=== PATIENT | female | born 1965 | race Caucasian/White ===

== ENCOUNTER 2017-02-06 20:26 | Emergency (ER) | payer BC, OTHER ==
[~2017-02-06] VITALS: Ht 170.2 cm; Wt 92.2 kg
[2017-02-06 20:31] VITALS: TEMP 36.6; Ht 170.2 cm; Wt 92.2 kg
[2017-02-06] MEDS ORDERED: OXYCODONE/ACETAMINOPHEN 5-325 TAB PO STA ×2 (20:59→22:40)
[2017-02-06] MEDS ORDERED: METOPROLOL SUCC 50MG EXT REL TAB PO STA (21:03)
[2017-02-06] MEDS ORDERED: MULT-240 PO (21:17)
[2017-02-06] MEDS ORDERED: METO25TA3 PO (21:17)
[2017-02-06] MEDS ORDERED: METOPROLOL SUCC 25MG EXT REL TAB PO ONE (21:22)
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
[2017-02-06] MEDS ORDERED: IBUPROFEN 600 MG TAB PO STA (21:28)
--- NOTE | 2017-02-06 21:54 | DIAGNOSTIC IMAGING REPORT ---
R ANKLE MIN 3 VIEWS ROUTINE, R FOOT MIN 3 VIEWS ROUTINE CLINICAL HISTORY: Right ankle and foot pain. COMPARISON STUDY: None. FINDINGS: There is a fracture through the pelvis which demonstrates up to 6 mm of medial displacement. Diffuse soft tissue swelling within the ankle. The distal fibula appears intact. No dislocation. No fracture or dislocation within the right foot. The Lisfranc joint is well aligned. IMPRESSION: 1. Mildly displaced medial malleolus fracture. 2. No fracture or dislocation within the right foot. Electronically signed by: Ruslan Mack M.D. 02/06/2017 9:53 PM Dictated Date/Time: 02/06/2017 9:51 PM
[2017-02-06] MEDS ORDERED: OXYC-57 PO (22:13)
[2017-02-06] MEDS ORDERED: PERCOCET HOME PACK PO ONE (22:30)
[2017-02-06 23:15] VITALS: BP 168/72; PULSE 89; O2SAT 94
[2017-02-11] MEDS ORDERED: ASPI81TA28 PO (14:01)
[2017-02-11] MEDS ORDERED: DOCU-94 PO (14:01)
== END 2017-02-06 23:10 | disposition home or self-care (01) ==
LOC: EDBD 20:26 → C.EDB 20:27
DX: S82.51XA Displaced fracture of medial malleolus of right tibia, initial encounter for closed fracture (principal); S80.212A Abrasion, left knee, initial encounter; V43.62XA Car passenger injured in collision with other type car in traffic accident, initial encounter; I10 Essential (primary) hypertension; F17.200 Nicotine dependence, unspecified, uncomplicated; Z82.49 Family history of ischemic heart disease and other diseases of the circulatory system

== ENCOUNTER → 2017-02-07 | Outpatient (CLI) | payer OTHER, BC ==
[~2017-02-07] MED LIST: ASPI325T45 PO; ASPI81TA28 PO; DOCU-94 PO; METO25TA3 PO; MULT-240 PO; OXYC-57 PO
== END | disposition home or self-care (01) ==
LOC: C.CPL 13:51
PROVIDERS: ATTEND Physician Assistant
DX: S82.51XA Displaced fracture of medial malleolus of right tibia, initial encounter for closed fracture (principal); X58.XXXA Exposure to other specified factors, initial encounter

== ENCOUNTER → 2017-02-13 | Day surgery (SDC) | payer OTHER, BC ==
[2017-02-11 14:02] VITALS: Ht 170.2 cm; Wt 81.8 kg
[~2017-02-13] VITALS: Ht 170.2 cm; Wt 81.8 kg
[~2017-02-13] MED LIST changes: +ASPECOTC PO; -ASPI325T45 PO; +ATROPINE SULFATE 0.1 MG/ML 5ML SYR IV PRN; +BUPIVACAINE 0.5 % 5 MG/1 ML MPF 30ML VIAL ONE; +CEFAZOLIN 2000MG IV PUSH 10 ML IV SCH; +EpHEDrine SULFATE INJ 50 MG/ML AMP IV PRN; +FENTANYL CITRATE INJ 50 MCG/1 ML 2 ML VIAL ONE; +HYDROmorphone INJ 0.5 MG/0.5 ML SYR IM PRN; +LACTATED RINGER'S 1000ML 1,000 ML IV SCH; +LIDOCAINE HCL 2% 2 ML VIAL (20MG/ML) ONE; +MIDAZOLAM HCL 1 MG/ML 2ML VIAL ONE; +ONDANSETRON INJ 2 MG/ML 2 ML VIAL IV PRN; +ONDANSETRON INJ 2 MG/ML 2 ML VIAL ONE; +OXYCODONE/ACETAMINOPHEN 5-325 TAB PO PRN; +PROPOFOL IV EMULSION 10 MG/ML 20 ML VIAL IV ONE; +ROPIVACAINE 0.5% 5 MG/ML 30 ML VIAL ONE; +SODIUM CHLORIDE 0.9% 1000ML 1,000 ML IV SCH
--- NOTE | 2017-02-13 12:12 | History & Physical Bridge Note ---
H&P Re-Evaluation Bridge Note: I have examined the patient, reviewed the History & Physical and in the interval since the performance of the History & Physical I have noted the following changes of clinical significance: No changes noted
--- NOTE | 2017-02-13 13:19 | [facility] Post Operative Brief Note ---
Immediate Operative Summary Operative Date Feb 13, 2017. Pre-Operative Diagnosis Right Ankle medial malleolus Fracture Post-Operative Diagnosis Same Procedure(s) Performed Right Medial Malleolus Open Reduction Internal Fixation Surgeon Dr. Monroy Concierge Receptionist Surgeon(s) Dana Bustos PA-C Estimated Blood Loss 5ml Findings medial malleolus fracture Specimens None Anesthesia LMA, block Complication(s) None Disposition Recovery Room / PACU
--- NOTE | 2017-02-13 13:40 | Discharge Instructions-SurgCtr ---
Discharge Instructions Date of Service Feb 13, 2017. Visit Reason for Visit: Right Medial Mallolus Fracture Discharge Discharge Diagnosis / Problem: right medial malleolus fracture Discharge Goals Goal(s): Decrease discomfort, Improve function, Increase independence Activity Recommendations Activity Limitations: per Instructions/Follow-up section Weightbearing Status: Right non-weightbearing Anesthesia . Post Anesthesia Instructions: If you have had General Anesthesia or IV Sedation: * Do not drive today. * Resume driving when surgeon permits. * Do not make important decisions or sign legal documents today. * Call surgeon for: 1. Temperature elevations greater than 101 degrees F. 2. Uncontrollable pain. 3. Excessive bleeding. 4. Persistent nausea and vomiting. 5. Medication intolerance (nausea, vomiting or rash). * For nausea and vomiting use only clear liquids such as: tea, soda, bouillon until nausea subsides, then gradually increase diet as tolerated. * If you have any concerns or questions, call your surgeon's office. If physician is unavailable and it is an emergency, call 911 or go to the nearest emergency room. . Instructions / Follow-Up Instructions / Follow-Up DIET: * Resume previous diet. MEDICATIONS: * Please take your prescriptions as instructed at your pre-op appointment and/ or see medication discharge instructions listed above. * A prescription for Percocet 5/325 mg was provided for review today. Please take 1-2 tablets every 4-6 hours as needed for pain. Please call our office if you need a refill. * *Your aspirin 325 mg tomorrow morning with breakfast. Please take 1 tablet twice a day for 3 weeks or as instructed by your physician. * If concerns develop, call your physician's office at . SPECIAL CARE INSTRUCTIONS: * Ice to right ankle as needed for pain and swelling. * Elevate right lower extremity above your heart to relieve pain and swelling. * It's okay for you to wiggle your toes of your right foot and bend your right knee. * DO NOT PUT ANY WEIGHT ON YOUR RIGHT LEG. Use crutches, walker, knee walker or wheelchair to assist with ambulation at all times. * Keep dressing clean, dry, intact. Keep splint on at all times. Do not get wet. * Your surgical extremity may be discolored due to prepping agents used on the skin. A bluish-green tint is a normal variant and should not cause alarm. Call your doctor at [phone] if: * Temperature above 101 degrees * Pain not relieved by pain medicine ordered * There is increased drainage or redness from any incision * You have any unanswered questions, problems or concerns. FOLLOW UP VISIT: * If not already scheduled, please call the office at to schedule a follow-up appointment. * You have a physical therapy appointment on 02/19/2017 at 10:30 AM. * You have a follow-up scheduled with Dr. James Monroy on 02/26/2017 at 12: 45 PM. Diet Recommendations Home Diet: no limitations, resume previous diet Procedures Procedures Performed: Right Medial Malleolus Open Reduction Internal Fixation Pending Studies Studies pending at discharge: no Medical Emergencies . Who to Call and When: Medical Emergencies: If at any time you feel your situation is an emergency, please call 911 immediately. . Non-Emergent Contact Non-Emergency issues call your: Surgeon Call Non-Emergent contact if: temperature is above 101, your pain is not controlled, your pain is worsening, wound has increased drainage, wound has increased redness, wound has increased pain, you have any medication questions . . "Provider Documentation" section prepared by Zulema Bustos. . [place] Drug Monitoring Program Search Results: patient reviewed within database, no issues identified
[2017-02-13] MEDS: FENTANYL CITRATE INJ 50 MCG/1 ML 2 ML VIAL IV PRN ×3 (13:41→14:04)
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
[2017-02-13 14:39] VITALS: TEMP 37.1
--- NOTE | 2017-02-13 15:01 | Anesthesia Progress Nt - [facility] ---
Anesthesia Post Op Note Date & Time Feb 13, 2017 at 15:00 Vital Signs Pain Intensity: 4 Vital Signs Past 12 Hours Date Time Temp Pulse Resp B/P (MAP) Pulse Ox O2 Delivery O2 Flow Rate FiO2 02/13/17 14:39 37.1 94 16 152/49 (83) 97 Room Air 02/13/17 14:27 37.8 80 14 153/66 100 Room Air 02/13/17 14:26 153/66 02/13/17 14:25 78 13 02/13/17 14:25 77 13 97 02/13/17 14:20 73 12 02/13/17 14:20 73 12 122/73 97 02/13/17 14:15 83 19 02/13/17 14:15 81 19 118/96 99 02/13/17 14:11 151/68 02/13/17 14:10 78 15 100 02/13/17 14:10 77 15 02/13/17 14:05 73 11 147/72 100 02/13/17 14:05 74 11 02/13/17 14:00 80 16 02/13/17 14:00 81 16 150/85 100 02/13/17 13:56 135/83 02/13/17 13:55 79 19 02/13/17 13:55 80 19 100 02/13/17 13:50 83 17 158/81 100 02/13/17 13:50 83 17 02/13/17 13:45 95 17 02/13/17 13:45 96 17 170/95 100 02/13/17 13:40 86 17 174/74 100 02/13/17 13:40 85 17 02/13/17 13:36 143/69 02/13/17 13:35 37.5 88 16 143/69 99 Mask 6 02/13/17 13:35 87 15 02/13/17 13:35 86 15 98 02/13/17 12:11 79 21 155/87 99 02/13/17 12:11 80 02/13/17 12:06 76 02/13/17 12:06 73 15 100 02/13/17 12:05 163/75 02/13/17 12:01 73 02/13/17 12:01 74 13 100 02/13/17 12:00 149/80 02/13/17 11:56 70 02/13/17 11:56 69 15 99 02/13/17 11:55 137/71 02/13/17 11:51 73 19 98 02/13/17 11:51 73 02/13/17 11:50 147/65 02/13/17 11:46 98 02/13/17 11:46 103 37 99 02/13/17 11:45 75 17 130/77 98 02/13/17 11:45 75 02/13/17 11:40 81 14 151/74 100 02/13/17 11:40 84 02/13/17 11:39 145/78 02/13/17 10:05 36.7 83 18 146/82 (103) 96 Room Air Notes Mental Status: alert / awake / arousable, participated in evaluation Pt Amnestic to Procedure: Yes Nausea / Vomiting: adequately controlled Pain: adequately controlled Airway Patency, RR, SpO2: stable & adequate BP & HR: stable & adequate Hydration State: stable & adequate Anesthetic Complications: no major complications apparent
[2017-02-13 15:17] VITALS: BP 145/80; PULSE 83; O2SAT 98
== END | disposition home or self-care (01) ==
LOC: X.SURG 09:44
PROVIDERS: ATTEND Physical Medicine & Rehabilitation Sports Medicine
DX: S82.51XA Displaced fracture of medial malleolus of right tibia, initial encounter for closed fracture (principal); V89.2XXA Person injured in unspecified motor-vehicle accident, traffic, initial encounter; I10 Essential (primary) hypertension; Z79.899 Other long term (current) drug therapy; Z79.82 Long term (current) use of aspirin

== ENCOUNTER → 2017-02-26 | Outpatient (CLI) | payer OTHER ==
[~2017-02-26] MED LIST changes: -ASPECOTC PO; +ASPI325T45 PO; -ASPI81TA28 PO; -ATROPINE SULFATE 0.1 MG/ML 5ML SYR IV PRN; -BUPIVACAINE 0.5 % 5 MG/1 ML MPF 30ML VIAL ONE; -CEFAZOLIN 2000MG IV PUSH 10 ML IV SCH; -EpHEDrine SULFATE INJ 50 MG/ML AMP IV PRN; -FENTANYL CITRATE INJ 50 MCG/1 ML 2 ML VIAL ONE; -HYDROmorphone INJ 0.5 MG/0.5 ML SYR IM PRN; -LACTATED RINGER'S 1000ML 1,000 ML IV SCH; -LIDOCAINE HCL 2% 2 ML VIAL (20MG/ML) ONE; -MIDAZOLAM HCL 1 MG/ML 2ML VIAL ONE; -ONDANSETRON INJ 2 MG/ML 2 ML VIAL IV PRN; -ONDANSETRON INJ 2 MG/ML 2 ML VIAL ONE; -OXYCODONE/ACETAMINOPHEN 5-325 TAB PO PRN; -PROPOFOL IV EMULSION 10 MG/ML 20 ML VIAL IV ONE; -ROPIVACAINE 0.5% 5 MG/ML 30 ML VIAL ONE; -SODIUM CHLORIDE 0.9% 1000ML 1,000 ML IV SCH
== END | disposition home or self-care (01) ==
LOC: C.RDSM 12:55
PROVIDERS: ATTEND Physical Medicine & Rehabilitation Sports Medicine
DX: S82.51XA Displaced fracture of medial malleolus of right tibia, initial encounter for closed fracture (principal); X58.XXXA Exposure to other specified factors, initial encounter

== ENCOUNTER → 2017-03-12 | Outpatient (CLI) | payer OTHER | END | disposition home or self-care (01) | LOC: C.RDSM 11:00 | PROVIDERS: ATTEND Physical Medicine & Rehabilitation Sports Medicine | DX: S82.51XA Displaced fracture of medial malleolus of right tibia, initial encounter for closed fracture (principal); X58.XXXA Exposure to other specified factors, initial encounter ==

== ENCOUNTER → 2017-04-11 | Outpatient (CLI) | payer OTHER | END | disposition home or self-care (01) | LOC: C.RDSM 14:28 | PROVIDERS: ATTEND Physical Medicine & Rehabilitation Sports Medicine | DX: S82.51XD Displaced fracture of medial malleolus of right tibia, subsequent encounter for closed fracture with routine healing (principal); X58.XXXD Exposure to other specified factors, subsequent encounter ==

== ENCOUNTER → 2017-04-11 | Outpatient (CLI) | payer OTHER ==
--- NOTE | 2017-04-11 11:25 | DIAGNOSTIC IMAGING REPORT ---
THORACIC SPINE 3 VIEWS ROUTINE HISTORY: Pain M54.6 Left-sided thoracic back [id number] COMPARISON: None. FINDINGS: There is no fracture. No subluxation. Mild degenerative disc change throughout the entire thoracic region. No evidence for compression deformity. No significant subluxation. IMPRESSION: Mild degenerative disc change. No acute process. The above report was generated using voice recognition software. It may contain grammatical, syntax or spelling errors. Electronically signed by: Phoenix Deluna M.D. 04/11/2017 11:24 AM Dictated Date/Time: 04/11/2017 11:23 AM
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
== END | disposition home or self-care (01) ==
LOC: C.RAD 10:10
PROVIDERS: ATTEND Nurse Practitioner Adult Health
DX: M54.6 Pain in thoracic spine (principal)